=== PATIENT | male | born 1955 | race Caucasian/White ===

== ENCOUNTER → 2018-04-08 | Outpatient (CLI) | payer BC ==
[~2018-04-08] VITALS: Ht 177.8 cm; Wt 70.3 kg
[~2018-04-08] MED LIST: GLUCOSAMINE &1 EAC1 PO; MULTIVITAMINS1 EAC7 PO; TUMS PO; VITAMINC500 PO
== END | disposition home or self-care (01) ==
LOC: GI 07:42
DX: Z12.11 Encounter for screening for malignant neoplasm of colon (principal); K63.5 Polyp of colon; Z98.890 Other specified postprocedural states
CPT/HCPCS: 62110; 62900